=== PATIENT | female | born 1965 | race Caucasian/White ===

== ENCOUNTER 2016-11-21 13:46 | Emergency (ER) | payer BC ==
[2016-11-21 14:19] VITALS: BP 110/60
[2016-11-21] MEDS ORDERED: Sodium Chloride 0.9% 1,000 ML IV ONE ×2 (14:31→18:06)
[2016-11-21] MEDS ORDERED: Ondansetron 4 MG/2 ML SDV IVPUSH ONE (14:38)
[2016-11-21] MEDS ORDERED: Ketorolac 30 MG/ML SDV IVPUSH ONE (14:49)
[2016-11-21] MEDS ORDERED: Ketorolac 30 MG/ML SDV ONE (14:52)
[2016-11-21] MEDS ORDERED: methylPREDNISolone Sodium Succinate 125 MG/2 ML SDV IVPUSH ONE (14:53)
--- NOTE | 2016-11-21 14:59 | EDM.PDOC ---
ED HPI HEADACHE COMPLAINT - General Chief Complaint: Headache Stated Complaint: vomiting head ache Time Seen by Provider: 11/21/16 14:14 Source: Reports: Patient, Family History Limitations: Reports: Other (H/A) - History of Present Illness INITIAL COMMENTS - FREE TEXT/NARRATIVE: 51 years old w f with a h/o of migraine headache, came to the ed due to severe occipital H/A radiating to her forehead. I have seen this patient in the past. No trauma. Not the worst headache. Pt was seen by a neurologist in the past and was told she has Migraine Headache. As per , pt was taking Bactrim DS for a bladder infection. Her headache appears to be triggered by the sufa medication. 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 Onset Date: 11/21/16 Symptom Onset Time: 10:00 Timing/Duration: Reports: intermittent Location: Reports: occipital, temporal, bilateral Quality: Reports: pounding, squeezing Severity: Reports: severe, similar to past headaches Context: Reports: recent drugs/ETOH (bactrim) Associated Symptoms: Reports: hyperacusis, photophobia - Related Data Allergies/ADRs: Allergies Allergy/AdvReac Type Severity Reaction Status Date / Time No Known Allergies Allergy Verified 11/21/16 14:09 Home Meds: Home Meds Amitriptyline [Elavil] 25 mg PO BEDTIME 07/24/13 [History] Dimenhydrinate [Dramamine] 50 mg PO Q6H PRN 07/24/13 [History] Ibuprofen 600 mg PO Q6H PRN 07/24/13 [History] Citalopram [Citalopram HBr] 20 mg PO DAILY 04/10/16 [History] Acetaminophen [Tylenol] 325 mg PO ASDIRECTED PRN 04/11/16 [History] Ondansetron [Zofran Odt] 8 mg PO Q6H PRN #20 tab.rapdis 09/01/16 [Rx] Ciprofloxacin [Cipro] 500 mg PO BID #20 tab 11/21/16 [Rx] Promethazine [Phenergan] 25 mg PO Q6H PRN #20 tab 11/21/16 [Rx] Past Medical History - Past Health History Medical/Surgical History: Denies Medical/Surgical History HEENT History: Reports: Allergic rhinitis, Impaired vision, Other (see below) Other HEENT History: ALLERGIC RHINITIS; MYOPIA; PRESBYOPIA; ASTIGMATISM Cardiovascular History: Reports: None, Other (see below) Other Cardiovascular History: PALPITATIONS Respiratory History: Reports: None Gastrointestinal History: Reports: GERD Genitourinary History: Reports: Urinary incontinence 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: Musculoskeletal History: Reports: None Neurological History: Reports: Headaches, chronic, Migraines Psychiatric History: Reports: Depression Endocrine/Metabolic History: Reports: None Hematologic History: Reports: None Immunologic History: Reports: None Oncologic (Cancer) History: Reports: None Dermatologic History: Reports: None - Infectious Disease History Infectious Disease History: Reports: Chicken pox - Past Surgical History Head Surgeries/Procedures: Reports: None HEENT Surgical History: Reports: Tonsillectomy GI Surgical History: Reports: Colonoscopy Female Surgical History: Reports: Breast implant, section, Tubal ligation Social & Family History - Family History Family Medical History: Unobtainable - Tobacco Use Smoking Status *Q: Never Smoker Second Hand Smoke Exposure: No - Caffeine Use Caffeine Use: Reports: Soda - Alcohol Use Days Per Week of Alcohol Use: 2 Number of Drinks Per Day: 0 Total Drinks Per Week: 0 - Recreational Drug Use Recreational Drug Use: No - Living Situation & Occupation 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: , 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 GENERAL - Review of Systems Review Of Systems: See Below Constitutional: Reports: decreased appetite HEENT: Reports: Other (H/A) Respiratory: Reports: No Symptoms Cardiovascular: Reports: No symptoms Endocrine: Reports: no symptoms GI/Abdominal: Reports: Nausea, Vomiting : Reports: no symptoms Musculoskeletal: Reports: no symptoms Skin: Reports: no symptoms Neurological: Reports: No Symptoms Psychiatric: Reports: No symptoms Hematologic/Lymphatic: Reports: no symptoms Immunologic: Reports: no symptoms - Physical Exam Exam: See Below Exam Limited By: Other (H/A) General Appearance: alert, WD/WN, moderate distress, thin Eye Exam: bilateral eye: normal inspection Ears: normal external exam Nose: normal inspection Throat/Mouth: Normal inspection, Normal lips, Normal teeth Head Exam: atraumatic, normocephalic Neck: normal inspection, supple, non-tender, full range of motion Respiratory/Chest: no respiratory distress, lungs clear, normal breath sounds Cardiovascular: normal peripheral pulses, regular rate, rhythm, no edema GI/Abdominal: normal bowel sounds, soft, non tender (Female) Exam: Deferred Rectal (Female) Exam: Deferred Neuro Exam (Abbreviated): alert, oriented, CN II-XII intact, normal cognition, normal gait Back Exam: normal inspection, full range of motion Extremities: normal inspection, normal range of motion, non-tender, no pedal edema Psychiatric: normal affect, normal mood Skin Exam: Warm, Dry, Intact Course - Vital Signs Text/Narrative:: 51 years old w f with a h/o of migraine headache, came to the ed due to severe occipital H/A radiating to her forehead. I have seen this patient in the past. No trauma. Not the worst headache. Pt was seen by a neurologist in the past and was told she has Migraine Headache. As per , pt was taking Bactrim DS for a bladder infection. Her headache appears to be triggered by the sufa medication. 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 Plan: D/C with instructions Last Recorded V/S: Last Vital Signs Temp 38.2 C H 11/21/16 14:14 Pulse 109 H 11/21/16 14:14 Resp 16 11/21/16 14:14 BP 110/60 11/21/16 14:14 Pulse Ox 97 11/21/16 14:14 - Orders/Labs/Meds Labs: Laboratory Tests 11/21/16 11/21/16 Range/Units 14:45 14:45 WBC 8.6 (4.5-12.0) X10-3/uL RBC 4.13 (3.23-5.20) x10(6)uL Hgb 12.8 (11.5-15.5) g/dL Hct 37.8 (30.0-51.3) % MCV 91.5 (80-96) fL MCH 30.9 (27.7-33.6) pg MCHC 33.7 (32.2-35.4) g/dL RDW 12.2 (11.5-15.5) % Plt Count 194 (125-369) X10(3)uL MPV 7.7 (7.4-10.4) fL Add Manual Diff Yes Neutrophils % (Manual) 90 H (46-82) % Lymphocytes % (Manual) 4 L (13-37) % Monocytes % (Manual) 6 (4-12) % Sodium 139 (135-145) mmol/L Potassium 3.3 L (3.5-5.3) mmol/L Chloride 106 (100-110) mmol/L Carbon Dioxide 25 (23-29) mmol/L BUN 14 (5-20) mg/dL Creatinine 0.6 (0.6-1.3) mg/dL Est Cr Clr Drug Dosing TNP Estimated GFR (MDRD) > 60 (>60) BUN/Creatinine Ratio 23.3 H (9-20) Glucose 130 H (80-116) mg/dL Calcium 8.4 L (8.6-10.2) mg/dL Meds: Medications Discontinued Medications Generic Name Dose Route Start Last Admin Trade Name Freq PRN Reason Stop Dose Admin Dihydroergotamine Mesylate 1 mg 11/21/16 16:04 11/21/16 16:10 Dhe 45 IVPUSH 11/21/16 16:05 1 mg ONETIME ONE Administration Dihydroergotamine Mesylate Confirm 11/21/16 16:06 11/21/16 16:10 Dhe 45 Administered 11/21/16 16:07 Not Given Dose 1 mg .ROUTE .STK-MED ONE Dihydroergotamine Mesylate 1 mg 11/21/16 18:05 11/21/16 18:41 Dhe 45 IVPUSH 11/21/16 18:06 1 mg ONETIME ONE Administration Sodium Chloride 1,000 mls @ 999 mls/hr 11/21/16 14:31 11/21/16 14:48 Normal Saline IV 11/21/16 15:31 999 mls/hr .BOLUS ONE Administration Sodium Chloride 1,000 mls @ 999 mls/hr 11/21/16 18:06 11/21/16 18:39 Normal Saline IV 11/21/16 19:06 999 mls/hr .BOLUS ONE Administration Promethazine HCl 12.5 mg/ 50.5 mls @ 200 mls/hr 11/21/16 18:45 11/21/16 18:57 Sodium Chloride IV 11/21/16 19:00 200 mls/hr ONETIME STA Administration Ketorolac Tromethamine 30 mg 11/21/16 14:49 11/21/16 14:56 Toradol IVPUSH 11/21/16 14:50 30 mg ONETIME ONE Administration Ketorolac Tromethamine Confirm 11/21/16 14:52 11/21/16 14:58 Toradol Administered 11/21/16 14:53 Not Given Dose 30 mg .ROUTE .STK-MED ONE Methylprednisolone Sodium Succinate 125 mg 11/21/16 14:53 11/21/16 15:02 Solu-Medrol IVPUSH 11/21/16 14:54 125 mg ONETIME ONE Administration Metoclopramide HCl 10 mg 11/21/16 16:03 11/21/16 16:04 Reglan IVPUSH 11/21/16 16:04 10 mg ONETIME ONE Administration Metoclopramide HCl Confirm 11/21/16 16:04 11/21/16 16:04 Reglan Administered 11/21/16 16:05 Not Given Dose 10 mg .ROUTE .STK-MED ONE Ondansetron HCl 8 mg 11/21/16 14:38 11/21/16 14:55 Zofran IVPUSH 11/21/16 14:39 8 mg ONETIME ONE Administration Potassium Chloride 40 meq 11/21/16 18:06 11/21/16 18:40 Klor-Con M20 PO 11/21/16 18:07 40 meq ONETIME ONE Administration Departure - Departure Time of Disposition: 20:20 Disposition: Home, Self-Care 01 Condition: good Clinical Impression: Headache Qualifiers: Headache type: unspecified Headache chronicity pattern: episodic headache Intractability: not intractable Qualified Code(s): R51 - Headache Prescriptions: Ciprofloxacin [Cipro] 500 mg PO BID #20 tab Promethazine [Phenergan] 25 mg PO Q6H PRN #20 tab PRN Reason: Nausea Referrals: Elsa Camacho PA [Primary Care Provider] - Forms: ED Department Discharge Additional Instructions: Please take the meds as recommended, please follow up with your PMD, come back to the ed if your symptom get acutely worse.
[2016-11-21] MEDS ORDERED: Metoclopramide 10 MG/2 ML SDV IVPUSH ONE (16:03)
[2016-11-21] MEDS ORDERED: Metoclopramide 10 MG/2 ML SDV ONE (16:04)
[2016-11-21] MEDS ORDERED: Dihydroergotamine 1 MG/ML SDV IVPUSH ONE ×2 (16:04→18:05)
[2016-11-21] MEDS ORDERED: Dihydroergotamine 1 MG/ML SDV ONE (16:06)
[2016-11-21] MEDS ORDERED: Potassium Chloride 20 MEQ Tab.ER PO ONE (18:06)
[2016-11-21] MEDS ORDERED: Promethazine 12.5 MG in Sodium Chloride 0.9% 50 ML IV STA (18:45)
== END 2016-11-21 21:00 | disposition home or self-care (01) ==
LOC: FB.ED 13:46
DX: G43.909 Migraine, unspecified, not intractable, without status migrainosus (principal); K21.9 Gastro-esophageal reflux disease without esophagitis; F32.9 Major depressive disorder, single episode, unspecified; Z79.899 Other long term (current) drug therapy; Z98.890 Other specified postprocedural states; Z98.51 Tubal ligation status
CPT/HCPCS: 36415; 80048; 85025; 96361; 96365; 96375; 99283; A9270; J1110; J1885; J2405; J2550; J2765; J2930; J7040; J7050

== ENCOUNTER 2016-11-22 05:48 | Inpatient (IN) | payer BC ==
[2016-11-22] MEDS ORDERED: Potassium Chloride 10 MEQ in Premix Bag 1 BAG IV ONE (06:06)
[2016-11-22] MEDS ORDERED: SUMAtriptan 6 MG/0.5 ML SDV SUBCUT ONE (06:08)
[2016-11-22] MEDS ORDERED: Promethazine 12.5 MG in Sodium Chloride 0.9% 50 ML IV ONE (06:08)
[2016-11-22] MEDS ORDERED: Sodium Chloride 0.9% 1,000 ML IV SCH (06:15)
[2016-11-22] MEDS ORDERED: Sodium Chloride 0.9% 10 ML Syringe FLUSH PRN (06:16)
[2016-11-22] MEDS ORDERED: Pantoprazole 40 MG Vial IVPUSH ONE (06:16)
--- NOTE | 2016-11-22 06:16 | EDM.PDOC ---
ED HPI HEADACHE COMPLAINT - General Chief Complaint: Headache Stated Complaint: HEADACHES Time Seen by Provider: 11/22/16 05:58 Source: Reports: Patient, Family History Limitations: Reports: Other (H/A) - History of Present Illness INITIAL COMMENTS - FREE TEXT/NARRATIVE: 51 years old w f came to the ed with severe gen headache, same as in the past, when an CT and MRI were performed, all negative. She was here in [facility] ed last night for same and d/c'd home after Zofran, Reglan, Phenergen, NS, Toradol and Solumedrol were given, her potassium was 3.3. She was given potassium PO which she most likely vomited up. She received DHE 45 1mg X 2 as well which gave her relive. she was d/c'd home then. As per , Bactrim DS, which she took for an UTI may have triggered the H/A. Pt is ambulating fine, denied other medical issues. Symptom Onset Date: 11/21/16 Symptom Onset Time: 10:00 Timing/Duration: Reports: hour(s): Location: Reports: occipital, temporal, bilateral Quality: Reports: pounding, squeezing Severity: Reports: moderate, similar to past headaches - Related Data Allergies/ADRs: Allergies Allergy/AdvReac Type Severity Reaction Status Date / Time No Known Allergies Allergy Verified 11/22/16 05:54 Home Meds: Home Meds Amitriptyline [Elavil] 25 mg PO BEDTIME 07/24/13 [History] Dimenhydrinate [Dramamine] 50 mg PO Q6H PRN 07/24/13 [History] Ibuprofen 600 mg PO Q6H PRN 07/24/13 [History] Citalopram [Citalopram HBr] 20 mg PO DAILY 04/10/16 [History] Acetaminophen [Tylenol] 325 mg PO ASDIRECTED PRN 04/11/16 [History] Ondansetron [Zofran Odt] 8 mg PO Q6H PRN #20 tab.rapdis 09/01/16 [Rx] Ciprofloxacin [Cipro] 500 mg PO BID #20 tab 11/21/16 [Rx] Promethazine [Phenergan] 25 mg PO Q6H PRN #20 tab 11/21/16 [Rx] Nortriptyline 10 mg PO BEDTIME 11/22/16 [History] SUMAtriptan Succinate [Imitrex] 100 mg PO BID PRN 11/22/16 [History] Past Medical History - Past Health History Medical/Surgical History: Denies Medical/Surgical History HEENT History: Reports: Allergic rhinitis, Impaired vision, Other (see below) Other HEENT History: ALLERGIC RHINITIS; MYOPIA; PRESBYOPIA; ASTIGMATISM Cardiovascular History: Reports: None, Other (see below) Other Cardiovascular History: PALPITATIONS Respiratory History: Reports: None Gastrointestinal History: Reports: GERD Genitourinary History: Reports: Urinary incontinence 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: Musculoskeletal History: Reports: None Neurological History: Reports: Headaches, chronic, Migraines Psychiatric History: Reports: Depression Endocrine/Metabolic History: Reports: None Hematologic History: Reports: None Immunologic History: Reports: None Oncologic (Cancer) History: Reports: None Dermatologic History: Reports: None - Infectious Disease History Infectious Disease History: Reports: Chicken pox - Past Surgical History Head Surgeries/Procedures: Reports: None HEENT Surgical History: Reports: Tonsillectomy GI Surgical History: Reports: Colonoscopy Female Surgical History: Reports: Breast implant, section, Tubal ligation Social & Family History - Family History Family Medical History: Unobtainable - Tobacco Use Smoking Status *Q: Never Smoker Second Hand Smoke Exposure: No - Caffeine Use Caffeine Use: Reports: Soda - Alcohol Use Days Per Week of Alcohol Use: 2 Number of Drinks Per Day: 0 Total Drinks Per Week: 0 - Recreational Drug Use Recreational Drug Use: No - Living Situation & Occupation 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: , other ([employer]) ED ROS GENERAL - Review of Systems Review Of Systems: See Below Constitutional: Reports: weakness HEENT: Reports: No symptoms Respiratory: Reports: No Symptoms Cardiovascular: Reports: No symptoms Endocrine: Reports: no symptoms GI/Abdominal: Reports: Nausea, Vomiting : Reports: no symptoms Musculoskeletal: Reports: no symptoms Skin: Reports: no symptoms Neurological: Reports: Headache Psychiatric: Reports: No symptoms Hematologic/Lymphatic: Reports: no symptoms Immunologic: Reports: no symptoms - Physical Exam Exam: See Below Exam Limited By: Other (N/V) General Appearance: alert, WD/WN, moderate distress, thin Eye Exam: bilateral eye: normal inspection Ears: normal external exam Nose: normal inspection Throat/Mouth: Other (dry mucosal membrane) Head Exam: atraumatic, normocephalic Neck: normal inspection, supple, non-tender, full range of motion Respiratory/Chest: no respiratory distress, lungs clear, normal breath sounds Cardiovascular: normal peripheral pulses, regular rate, rhythm, no edema GI/Abdominal: normal bowel sounds, soft, tender (epigastric, minor) (Female) Exam: Deferred Rectal (Female) Exam: Deferred Neuro Exam (Abbreviated): alert, oriented, CN II-XII intact, normal cognition, normal gait, no motor/sensory deficits Back Exam: normal inspection, full range of motion Extremities: normal inspection, normal range of motion, non-tender Psychiatric: normal affect, normal mood Skin Exam: Warm, Dry, Intact, Normal color, No rash Course - Vital Signs Text/Narrative:: 51 years old w f came to the ed with severe gen headache, same as in the past, when an CT and MRI were performed, all negative. She was here in [facility] ed last night for same and d/c'd home after Zofran, Reglan, Phenergen, NS, Toradol and Solumedrol were given, her potassium was 3.3. She was given potassium PO which she most likely vomited up. She received DHE 45 1mg X 2 as well which gave her relive. she was d/c'd home then. As per , Bactrim DS, which she took for an UTI may have triggered the H/A. Pt is ambulating fine, denied other medical issues. PE: N/V intermittently, Dry mucosal membrane Labs: WBC was 15.2 most likely from vomiting, no f/c. Neuro exam was nl Imaging: Not indicated. Impression: Migraine headache with photophobia, gastritis, Hypokalemia Tx: NS. Phenegen, potassium i.v. Imitrex, Dilaudid, Reexam: Improved, pt still not able to keep water down Plan: Admit Last Recorded V/S: Last Vital Signs Temp 36.7 C 11/22/16 08:53 Pulse 84 11/22/16 10:04 Resp 18 11/22/16 10:04 BP 110/84 11/22/16 10:04 Pulse Ox 100 11/22/16 10:04 - Orders/Labs/Meds Orders: Medication Orders Acetaminophen (Tylenol) 650 mg PO Q4H PRN PRN Reason: analgesia/fever Promethazine HCl 12.5 mg/ (Sodium Chloride) 50.5 mls @ 200 mls/hr IV Q6H PRN PRN Reason: Nausea/Vomiting Potassium Chloride/Sodium Chloride (Normal Saline With 20 Meq Kcl) 1,000 mls @ 150 mls/hr IV ASDIRECTED JOE Ciprofloxacin/Dextrose 400 mg/ (Premix) 200 mls @ 200 mls/hr IV Q12HR JOE Ketorolac Tromethamine (Toradol) 30 mg IVPUSH Q6H PRN PRN Reason: Pain Stop: 11/27/16 12:51 Sodium Chloride (Saline Flush) 10 ml FLUSH ASDIRECTED PRN PRN Reason: Keep Vein Open Meds: Medications Generic Name Dose Route Start Last Admin Trade Name Freq PRN Reason Stop Dose Admin Acetaminophen 650 mg 11/22/16 12:45 Tylenol PO Q4H PRN analgesia/fever Promethazine HCl 12.5 mg/ 50.5 mls @ 200 mls/hr 11/22/16 06:16 Sodium Chloride IV Q6H PRN Nausea/Vomiting Potassium Chloride/Sodium Chloride 1,000 mls @ 150 mls/hr 11/22/16 13:00 Normal Saline With 20 Meq Kcl IV ASDIRECTED JOE Ciprofloxacin/Dextrose 400 mg/ 200 mls @ 200 mls/hr 11/22/16 13:00 Premix IV Q12HR JOE Ketorolac Tromethamine 30 mg 11/22/16 12:51 Toradol IVPUSH 11/27/16 12:51 Q6H PRN Pain Sodium Chloride 10 ml 11/22/16 06:16 Saline Flush FLUSH ASDIRECTED PRN Keep Vein Open Discontinued Medications Generic Name Dose Route Start Last Admin Trade Name Freq PRN Reason Stop Dose Admin Hydromorphone HCl 1 mg 11/22/16 07:33 11/22/16 10:16 Dilaudid IM 11/22/16 07:34 1 mg ONETIME ONE Administration Hydromorphone HCl Confirm 11/22/16 10:11 11/22/16 10:15 Dilaudid Administered 11/22/16 10:12 Not Given Dose 2 mg .ROUTE .STK-MED ONE Sodium Chloride 1,000 mls @ 125 mls/hr 11/22/16 06:15 11/22/16 06:24 Normal Saline IV 125 mls/hr ASDIRECTED JOE Administration Potassium Chloride 10 meq/ 100 mls @ 100 mls/hr 11/22/16 06:06 11/22/16 07:49 Premix IV 11/22/16 07:05 100 mls/hr ONETIME ONE Administration Promethazine HCl 12.5 mg/ 50.5 mls @ 200 mls/hr 11/22/16 06:08 11/22/16 06:23 Sodium Chloride IV 11/22/16 06:23 200 mls/hr ONETIME ONE Administration Pantoprazole Sodium 40 mg 11/22/16 06:16 Protonix Iv IVPUSH 11/22/16 06:17 ONETIME ONE Sumatriptan Succinate 6 mg 11/22/16 06:08 11/22/16 06:22 Imitrex SUBCUT 11/22/16 06:09 6 mg ONETIME ONE Administration Departure - Departure Time of Disposition: 07:00 Disposition: Refer to Observation Condition: fair Clinical Impression: Headache
[2016-11-22] MEDS ORDERED: HYDROmorphone 2 MG/ML SDV IM ONE (07:33)
[2016-11-22] MEDS ORDERED: HYDROmorphone 2 MG/ML SDV ONE (10:11)
[2016-11-22] MEDS ORDERED: NS + KCl 20mEq/L 1,000 ML ONE (13:04)
[2016-11-22] MEDS: NS + KCl 20mEq/L 1,000 ML IV SCH ×2 (13:25→21:54)
[2016-11-22] MEDS: Ciprofloxacin in D5W 400 MG in Premix Bag 1 BAG IV SCH ×2 (13:26)
[2016-11-22] MEDS: Ketorolac 30 MG/ML SDV IVPUSH PRN ×2 (14:03→20:02)
[2016-11-22] MEDS: Acetaminophen 325 MG Tab PO PRN ×2 (14:03→19:05)
[2016-11-22] MEDS ORDERED: Sodium Chloride 0.9% 500 ML IV ONE (15:23)
[2016-11-22] MEDS ORDERED: cefTRIAXone 1 GM Vial ONE (15:30)
[2016-11-22] MEDS ORDERED: Sodium Chloride 0.9% 500 ML IV SCH (16:00)
[2016-11-22] MEDS: cefTRIAXone 1 GM in Sodium Chloride 0.9% 50 ML IV SCH (16:02)
--- NOTE | 2016-11-22 16:13 | HP ---
ADMISSION DATE: 11/22/2016 CHIEF COMPLAINT: Severe posterior headache with fever, chills, mild lower abdominal discomfort. HISTORY OF PRESENT ILLNESS: This patient is a 51-year-old female with a previous history of migraine headaches, anxiety and depression, along with some stress incontinence, who is seen today after being seen in the emergency room twice in the last 24 hours with the above chief complaint. Apparently, the patient was seen yesterday in the clinic with increased urinary frequency and some urgency. Urinalysis revealed pyuria and culture was done. She was started on Bactrim DS one b.i.d. She said, shortly after taking that, she developed a significant posterior headache and presented to the emergency room. She was treated with IV hydration, had been given Zofran and Phenergan. Was discharged home and seemed to be doing better. Last night, in the middle of night, her headache returned and became quite severe posterior. She was unable to take any of her antibiotics last night because of nausea. When she presented to the emergency room early this morning, she was felt to be somewhat dehydrated. Initially, when she was seen on Thursday, her white count was normal with a little bit of left shift. Today, however, her white count is elevated and, although, she said she has been afebrile at home, she admits to generalized myalgias severe posterior headache without blurred vision or double vision. She has had no history of head trauma and denies any neck stiffness, although, she says the headache radiates down into her neck. She has had no increased confusion. She has significant photophobia and associated nausea. She has been in the emergency room, where she had been given IV fluids and Zofran along with promethazine and Dilaudid. Although, her headache has subsided, she is feeling worse, has been vomiting and unable to keep anything down. She is therefore admitted for more aggressive therapy. There has been no chest pain and no cough. She admits to a minimal sore throat, but she thinks that is from the vomiting. She denies any ear pain, has had no blurred vision or double vision, numbness or tingling of any extremity. Denies any skin rashes, joint pain, swelling or tenderness, or other complaints. MEDICATIONS: She is taking no medicines lately. She normally is on Prilosec 20 mg daily and citalopram 20 mg daily. She has used diclofenac 75 mg b.i.d. periodically for headache and was recently started on the Bactrim DS. ALLERGIES: None are known. Although, in the past, she has had nausea with Septra. SOCIAL HISTORY: She does not smoke and uses alcohol rarely. PAST MEDICAL HISTORY: Pertinent in that she is 2, para 3. PAST SURGICAL HISTORY: She had one vaginal delivery and one section. Other surgeries include an augmentation mammoplasty along with tubal ligation. FAMILY HISTORY: The patient's mother in her early 30s of some form of abdominal cancer, she is not sure what. Dad living in his 70s, apparently, recently he had a stroke. She has 5 siblings. One brother apparently recently started to have seizures in his 40s and one brother apparently has a history of heart disease. REVIEW OF SYSTEMS: Full review of systems was discussed, other than that mentioned in the HPI, was unremarkable. PHYSICAL EXAMINATION: VITAL SIGNS: At this time showed her temperature to be 101.6, blood pressure was 80/40, pulse was 81 and regular, respirations were 18, O2 saturation ranges between 95% and 100% on room air. GENERAL: A well- developed, flushed-appearing female who appears uncomfortable, but in no acute distress. HEENT: Head, normocephalic and atraumatic. Pupils are round and reacted well to light and accommodation. Extraocular movements were intact. Sclerae and conjunctivae were clear. TMs are both clear. Nasal passages were open without discharge. Pharynx and palate were unremarkable, except for a little bit of mucoid postnasal drainage. No significant erythema or exudate was noted. NECK: There was no palpable anterior or posterior cervical adenopathy. She says it is a little bit sore in the anterior cervical region, but again, she thinks it is from the vomiting. Trachea was midline and thyroid was not enlarged. MUSCULOSKELETAL: The back was straight. No deformities were noted. No CVA or spinous process tenderness was noted. CHEST: Clear to auscultation and percussion. CARDIOVASCULAR: Revealed a normal S1 and S2 without murmur, rub, or gallop. ABDOMEN: Soft with a well-healed Pfannenstiel incisional scar. There was a little bit of suprapubic and bilateral lower quadrant tenderness without rebound, rigidity, organomegaly or masses. Tapping on her heels caused no increase in abdominal pain, although, it did bother her headache. EXTREMITIES: Without clubbing. No edema. Straight leg raising was negative to 90 degrees and Kernig sign was negative. She has excellent peripheral pulses distally. NEUROLOGIC: She is alert and oriented x3. She has significant photophobia from her headache and describes nausea. She moves all extremities to command. Cranial nerves were intact. No other abnormalities were noted. LABORATORY DATA: Lab done today revealed a hemoglobin of 13.2, hematocrit of 39.4, white count of 15,200. She had 86 segs, 8 bands, 3 lymphocytes, and 3 monos. Sodium 140, potassium at 3.9, creatinine was 0.8, BUN of 16. Random glucose was 123. Urinalysis today showed a specific gravity of 1.010 and was completely unremarkable. Urine culture done yesterday showed greater than 100,000 colonies of E. coli, sensitivities are not back yet. IMPRESSION: 1. Migraine headache with resultant nausea and vomiting, but I think it is aggravated by urosepsis and possible septicemia, especially with the fever. 2. Previous history of anxiety and depression. PLAN: Blood cultures will be obtained. Urine cultures are still pending. I am going to start her on IV Cipro 400 mg q.12 hours and appropriate IV hydration. Continue to treat her headache with IV Ketoralac along with promethazine and watch closely. Tylenol can be used for the fever. If there are new problems or other difficulties, we will deal with them then. /[id number] /SARANYAL
[2016-11-22] MEDS: Promethazine 12.5 MG in Sodium Chloride 0.9% 50 ML IV PRN (19:04)
[2016-11-23] MEDS: Ciprofloxacin in D5W 400 MG in Premix Bag 1 BAG IV SCH ×4 (01:25→12:00)
[2016-11-23] MEDS: Ketorolac 30 MG/ML SDV IVPUSH PRN ×3 (02:26→13:56)
[2016-11-23] MEDS: NS + KCl 20mEq/L 1,000 ML IV SCH ×3 (05:40→21:29)
[2016-11-23] MEDS: Promethazine 12.5 MG in Sodium Chloride 0.9% 50 ML IV PRN (06:59)
[2016-11-23] MEDS ORDERED: Pantoprazole 40 MG in Sodium Chloride 0.9% 100 ML IV SCH (10:15)
[2016-11-23] MEDS: Pantoprazole 40 MG Vial IVPUSH SCH (11:18)
[2016-11-23] MEDS: Loperamide 2 MG Cap PO PRN ×3 (11:18→19:34)
--- NOTE | 2016-11-23 11:48 | PN ---
DATE SEEN: 11/23/2016 SUBJECTIVE: This 51-year-old female presents today for followup of her fever with cystitis and headache. She spiked a temperature to 101 on admission, and cultures were obtained. Still awaiting the results of her urine culture sensitivity, but it did grow out greater than 100,000 colonies of E. coli. Blood cultures thus far show no growth. Headache was treated with Toradol, and she was given a gram of Rocephin and 400 mg of Cipro IV yesterday. Her fever has come down. She is well hydrated, voiding frequently. She now complains of loose stools and intermittent nausea with periodic vomiting. There has been no hemoptysis, hematemesis, or history of acholic stools. No history of melena or hematochezia. She continues to complain of a posterior headache. Toradol does help some. It is the nausea that bothers her mostly. She denies any actual abdominal pain. She has had no previous history of ulcer disease. Medications were reviewed. Allergies were reviewed, all of which were accurate. OBJECTIVE: VITAL SIGNS: Her temperature was 99.8 early this morning, it is now 98.9; pulse is 75 and regular; respirations are 18 and unlabored; blood pressure 115/63. GENERAL: She appears to be more comfortable today than yesterday. A well-developed, well-nourished female, who is alert and oriented, complains of some headache, but still has some photophobia. HEENT: Otherwise unremarkable. NECK: Full range of motion, but paraspinal muscle spasm and tenderness was noted, and pressure over this area seemed to aggravate her headaches some. CHEST: Clear. BACK: Without spinous process tenderness. She may have just a little bit of CVA tenderness. CARDIOVASCULAR: Reveals a normal S1 and S2 without murmur, rub, or gallop. ABDOMEN: Soft. She has maybe a little tenderness in the lower quadrants in the suprapubic area, but considerably less than yesterday, and there is no rebound or rigidity. Bowel sounds are normal. EXTREMITIES: Without clubbing. No edema, ulcerations, or areas of breakdown. Kernig's sign is negative with no evidence of nuchal rigidity. LABORATORY DATA: Lab today revealed a hemoglobin of 11.5, hematocrit of 34.3. Her white count is now 7900 with a normal differential. Sodium 140, potassium of 4.1, chloride is up to 117, CO2 is 21. Her creatinine is 0.5, BUN of 10. Urine culture as noted above. I reviewed the results of the previous CT scan and MRI of her head done in August, all of which was unremarkable. IMPRESSION: 1. Recent cystitis with fever. Rule out urosepsis, awaiting the results of her sensitivity, but the patient's white count has improved and her fever seems to be improving. 2. Persistent posterior headache. 3. Nausea and vomiting along with diarrhea. This may be a gastroenteritis. I think it is a bit early to have this from her antibiotic therapy, but we will watch closely. PLAN: At this point, we will continue the Cipro and ceftriaxone until we have the results of her urine culture. Because of her persistent nausea, I am going to increase her Phenergan to 25 mg IV q.6 hours p.r.n. We will continue Protonix IV, as she had a previous history of gastroesophageal reflux and dyspepsia and was taking omeprazole as an outpatient. Imodium will be used for the diarrhea, and we will continue to monitor and continue the Ketoralac IV for the headache, and we will follow from there. /[id number] /REUBEN
[2016-11-23] MEDS: Promethazine 25 MG in Sodium Chloride 0.9% 50 ML IV PRN (13:00)
[2016-11-23] MEDS ORDERED: hydrOXYzine HCl 50 MG/ML SDV IM ONE (15:17)
[2016-11-23] MEDS ORDERED: cefTRIAXone 1 GM in Sodium Chloride 0.9% 50 ML IV SCH ×2 (16:00→17:00)
[2016-11-23] MEDS ORDERED: cefTRIAXone 1 GM Vial ONE (16:08)
[2016-11-23] MEDS: cefTRIAXone 1 GM in Sodium Chloride 0.9% 50 ML IV SCH (17:24)
[2016-11-23] MEDS: Citalopram 20 MG Tab PO SCH (18:03)
[2016-11-23] MEDS: Acetaminophen 325 MG Tab PO PRN (19:36)
[2016-11-23] MEDS ORDERED: Nortriptyline 10 MG Cap PO SCH (21:00)
[2016-11-24] MEDS: Acetaminophen 325 MG Tab PO PRN ×4 (03:45→20:35)
[2016-11-24] MEDS: NS + KCl 20mEq/L 1,000 ML IV SCH ×3 (04:22→23:55)
[2016-11-24] MEDS: Promethazine 25 MG in Sodium Chloride 0.9% 50 ML IV PRN (08:12)
[2016-11-24] MEDS: Pantoprazole 40 MG Vial IVPUSH SCH (08:59)
--- NOTE | 2016-11-24 10:48 | US ---
INDICATION: Recurrent UTIs. RENAL ULTRASOUND COMPLETE: Multiple ultrasonic images revealed the kidneys to measure 11.3 x 6.5 x 6.5 cm on the right, and 11.7 x 5 x 5.3 cm on the left. The kidneys overall appear to be normal in size and shape. However, there is evidence of hydronephrosis. This is bilateral, raising question of a bladder outlet obstruction or possibly a normal variant. The urinary bladder measured 13.3 x 9.78 cm longitudinally with a transverse measurement of 119 mm. The urinary bladder wall appeared slightly thickened, raising question of cystitis. Along the anterior cranial aspect of the mid pole of the right kidney, there is a small fluid collection subhepatic in location - Morison's pouch - which may be related to an inflammatory process, such as pyelonephritis, but should be correlated clinically, as other etiology cannot be excluded. A definite abscess formation was not seen. No mass lesions or definite calculi were seen in the kidneys. Blood flow to the kidneys appeared normal. Bilateral ureteral jets are noted which does not strongly suggest ureteral obstructive process. IMPRESSION: 1. Appearance of dilatation of the collecting systems, both kidneys, raising question of hydronephrosis - obstructive uropathy - correlate clinically. Additional examination such as CT without and with IV contrast and with delayed CT urogram may be helpful depending upon clinical correlation. 2. Fluid collection Morison's pouch, etiology indeterminate but could be related to pyelonephritis. Other etiologies cannot be excluded. 3. Somewhat prominent size of the urinary bladder suggested - correlate clinically - with thickening of the urinary bladder wall suggested, possibly on the basis of cystitis - correlate clinically. MTDD
[2016-11-24] MEDS ORDERED: Nortriptyline 10 MG Cap PO SCH (12:38)
--- NOTE | 2016-11-24 13:30 | PN ---
DATE SEEN: 11/24/2016 SUBJECTIVE: This 51-year-old female is seen today for followup of her migraine headache, persistent nausea and vomiting and she has had recent cystitis secondary to Escherichia coli. Her temperature has been down. Her headache has improved some. She continues to be nauseated intermittently with the loose stools that have stopped. She has had some lower abdominal discomfort, but again no fever. Appetite is still quite poor. Her intake is poor. She complains of nausea. The patient is sleeping a fair amount throughout the day with the use of the promethazine. She has not had use of the Ketoralac much. She has been just using Tylenol right now for headache and that seems to give her about as much relief as anything else. Her other medications were reviewed. Allergies reviewed all of which were accurate. OBJECTIVE: GENERAL: She appears to be much more comfortable this morning. VITAL SIGNS: Temperature was 98.2, blood pressure 100/62, pulse is 61 and regular, respirations were 16, O2 saturations 94%. HEENT: Unremarkable. Range of motion of her neck is quite normal with minimal paraspinal muscle spasm and tenderness. No spinous process tenderness. No nuchal rigidity. CHEST: Clear. CARDIOVASCULAR: Unremarkable. BACK: Without CVA or spinal tenderness. ABDOMEN: Soft with minimal lower quadrant tenderness without rebound or rigidity. Bowel sounds are normal. EXTREMITY: Also unremarkable. Straight leg raising was negative to 90 degrees. NEUROLOGIC: No neurologic deficits were identified. Upon awakening, she answered questions appropriately. She was alert and oriented x3. IMPRESSION: 1. Recent fever, chills, some pyuria with urinary tract infection. Blood cultures thus far proved to be negative. Urine culture was positive for Escherichia coli. 2. Migraine headache with associated nausea and vomiting. 3. Diarrhea, presumably secondary gastroenteritis as this has since improved. PLAN: Ultrasound will be obtained today because of the recurrent urinary tract infections and the persistent pelvic pain. We will proceed from there. I am going to decrease her IV rate. Switch her off the promethazine and just use Vistaril orally for nausea. Increase her nortriptyline to 20 mg daily in hopes of improving her headaches and depending on how she does, switch her off the ceftriaxone for urinary tract infection. Get her started on home medications, but will wait and see. We will follow from there. /[id number] /REUBEN
[2016-11-24] MEDS ORDERED: Iopamidol 755 Mg/ML 100 ML Bottle IV ONE (14:56)
[2016-11-24] MEDS ORDERED: cefTRIAXone 1 GM in Sodium Chloride 0.9% 50 ML IV SCH (17:00)
[2016-11-24] MEDS: Omeprazole 20 MG Cap.CR PO SCH (17:42)
[2016-11-24] MEDS: Citalopram 20 MG Tab PO SCH (19:17)
[2016-11-25] MEDS: Omeprazole 20 MG Cap.CR PO SCH (06:47)
[2016-11-25] MEDS: Acetaminophen 325 MG Tab PO PRN (07:57)
--- NOTE | 2016-11-25 08:48 | CT ---
INDICATION: Lower abdominal pain with hydronephrosis on ultrasound. CT ABDOMEN AND PELVIS WITH CONTRAST COMPLETE: Spiral 2.5-mm axial sections were obtained through the abdomen and pelvis initially without contrast and then with 94 mL Isovue-370 at 1.3 mL per second through the abdomen, and then after an additional delay through the abdomen and pelvis. The latter study is for CT urogram. Sagittal and coronal reconstructions were obtained for all three phases. Oral contrast was also utilized. Total Exam DLP = 1870.34 mGy-cm. The lower lung betancourt and pleural spaces visualized showed some fibrotic changes at the lung bases posteriorly, right greater than left. The appendix extends from the cecum in the pelvis cranially to lie in the right upper quadrant posterolateral to the lower pole of the right lobe of the liver. Although the appendix was normal in appearance and size, there is some fat stranding adjacent to a portion of it in the paracolic gutter, raising question of a minimal or limited appendicitis in that area. No renal calculi were identified. The pyelocaliceal systems are somewhat prominent. The course and caliber of the ureters appears to be normal. A moderately large amount of free fluid is noted in the posterior cul-de-sac. Urinary bladder and ureteral jets noted to be normal, as visualized - right ureteral jet best visualized. Multiple phleboliths are noted in the pelvis. No evidence of bowel obstruction was identified. No hernias were identified. No gallstones were demonstrated. The liver, spleen, pancreas, and adrenal glands appeared normal. No definite renal abnormality was seen except for a tiny cyst anterior cortex, partially exophytic, right kidney mid pole. IMPRESSION: 1. A large amount of free fluid in the posterior cul-de-sac and pelvis in general could be on the basis of a large physiologic cyst rupture, although other etiology such as PID cannot be excluded - correlate clinically. 2. Relatively normal appearing urinary bladder with no evidence of obstructive uropathy - normal caliber ureters. 3. Fat stranding about the portion of the appendix adjacent to the cecum. Question the possibility of a localized appendicitis. However, the appendix is not grossly abnormal itself and findings may be on the basis of previous or resolved appendicitis. CT PELVIS: Examination of the pelvis was obtained by CT, as noted above, revealing a large amount of free fluid in the posterior cul-de-sac and extending anteriorly and cranially in the pelvis. Etiology is indeterminate, but could represent a very large physiologic ovarian cyst rupture. The possibility of other etiology such as PID would be a consideration. Also noted is a focal area of fat stranding surrounding a portion of the proximal appendix which is in the right lower quadrant extending into the pelvis. The possibility of a very localized or previous appendicitis would be a consideration, but should be correlated clinically. Report was called to Dr. Phillips at 1600 hours, 11/24/2016. [facility]
[2016-11-25] MEDS: Loperamide 2 MG Cap PO PRN (10:13)
--- NOTE | 2016-11-25 12:09 | PN ---
DATE SEEN: 11/25/2016 SUBJECTIVE: Jillian is seen today for followup of her cystitis, migraine headache associated with nausea, vomiting. She is considerably improved. She says her headache has improved considerably, and she no longer has any nausea, has not vomited now for some time. No loose stools have been noted. She had an ultrasound done yesterday showing some evidence of hydronephrosis in the kidneys; therefore, CT scan of her pelvis was done and shows a fair amount of free pelvic fluid, but no evidence of obstructive uropathy in the kidneys, bladder, or ureter. No evidence of other abnormalities were identified. She says today she is feeling much better. She is wanting more to eat, hungry and up and about. She admits to a little bit of neck discomfort with movement, but no stiffness and has had no other complaints or concerns. OBJECTIVE: GENERAL: She appears to be in no acute distress. VITAL SIGNS: At this time, afebrile. Blood pressure is 116/67, pulse is 56 and regular, respirations were 16 and unlabored. HEENT: Unremarkable. NECK: Actually had full range of motion with no evidence of stiffness. There was little bit of paraspinal muscle tenderness to palpation in the cervical region. CHEST: Clear. CARDIOVASCULAR: Revealed a normal S1 and S2 without murmur, rub, or gallop. ABDOMEN: Unremarkable. EXTREMITIES: Also negative. IMPRESSION: 1. Recent cystitis secondary to Escherichia coli with resultant lower abdominal pain. She does have some free fluid in the pelvis, and she may have had a ruptured ovarian cyst, but there is no evidence of PID or other abnormalities at least at this time. 2. Migraine headache with resultant nausea and vomiting that is improving. PLAN: We will discontinue her IV. Switch her from IV ceftriaxone for the cystitis to oral Macrobid 100 mg b.i.d. She apparently developed some significant GI upset from the sulfa medications. I increased her nortriptyline last night to 20 mg daily, and she said she slept fairly well. Has had no adverse effects. We will continue that and increase her diet and activity. We will plan on discharge today with followup with her regular provider in one week. /[id number] WM/MODL
[2016-11-25 16:38] VITALS: BP 100/51
[2016-11-25] MEDS: Citalopram 20 MG Tab PO SCH (18:32)
[2016-11-25] MEDS ORDERED: Nitrofurantoin Monohydrate/Macrocrystalline 100 MG Cap PO SCH (21:00)
--- NOTE | 2016-11-29 01:24 | DISCH ---
DISCHARGE DATE: 11/25/2016 REASON FOR ADMISSION: This 51-year-old, female with a previous history of migraine headaches and depression along with some stress incontinence. She was admitted after being seen in the emergency room twice in the last 24 hours with a severe posterior headache, fever, chills, lower abdominal discomfort. She had apparently been seen in the clinic the day before with urgency and increased urinary frequency. Urinalysis revealed pyuria and culture was ordered. She was started on Bactrim DS one b.i.d., shortly thereafter, she began noticing increasing posterior headache that she described as a severe migraine. She has had these in the past. She was given IV Zosyn, Phenergan, and ketorolac for headache. She was discharged home. She seemed to be doing better, but then became worse again, more nausea, was unable to keep anything down with severe headache. She had been evaluated previously within the last few months for the severe headache with a CT scan that was normal and MRI that was normal. She had a consultation with Neurology and they recommended initiating some nortriptyline. She said initially she thought that was actually working quite well, but now has become worse. She was seen in the emergency room, given IV fluids, Zofran and promethazine along with Dilaudid, but continued to do poorly. She was therefore admitted for more aggressive therapy. Please see the copy of the H and P for further details. HOSPITAL COURSE: When the patient was admitted, her white count was elevated at 15,200 her hemoglobin was 13.2, and she had a left shift. Her electrolytes were normal. Her creatinine was 0.8, BUN of 16. A repeat urinalysis was unremarkable, but she did become febrile. Cultures of her blood were obtained and a urine culture was reviewed and showed greater than 100,000 colonies of E. coli. We, therefore, hydrate her with intravenous fluids thinking that she may in fact have some septicemia and started her on Rocephin 1 g IV q.24 hours. She had also been placed on Cipro 500 mg daily, but we held on this as she was quite nauseated and was unable to keep much down. Culture eventually grew out E. coli, sensitive to everything and she defervesced nicely. She continued to have significant headache and nausea, but gradually with the use of IV promethazine and then eventually hydroxyzine, her nausea seemed to slowly improve. We restarted her nortriptyline, but increased it to 20 mg daily and that seemed to help her headache considerably. With re-hydration, and the above-mentioned antibiotics, her white count returned to 7900, her hemoglobin dropped, but it was considered to be delusional at 11.5, and her differential returned to normal. Her diet was advanced and she began keeping this down and we eventually switch her over to Macrobid 100 mg b.i.d. for her antibiotic, as she seemed to have significant adverse reaction to the sulfa and really did want use Cipro because she was nauseated at that time she took it, although I felt that was probably from her headache. She was comfortable with the Macrobid and actually had no difficulties with it. She has was up and about eating and drinking well and we discharged her to follow up as an outpatient. FINAL DIAGNOSES: 1. Urinary tract infection secondary to E. coli with resultant fever, chills, leukocytosis. 2. Migraine headache with resultant nausea, vomiting, and mild dehydration. 3. Previous history of depression and anxiety. DISCHARGE MEDICATIONS: 1. Macrobid 100 mg b.i.d. 2. Nortriptyline 20 mg p.o. at bedtime. 3. Omeprazole 20 mg daily. 4. Citalopram 20 mg daily. 5. Sumatriptan 100 mg tablet one at the onset of headache and may repeat in 2 hours if headache has not improved. She is to take no more than 2 in 24 hours. DISCHARGE DIET: Regular. DISCHARGE DISPOSITION: She was discharged in the care of her family. She will follow up with her regular provider in 1 week for repeat urinalysis. If there are problems or other difficulties arise, let us know. /[id number] /REUBEN
== END 2016-11-25 18:50 | disposition home or self-care (01) | DRG 54 ==
LOC: FB.ED 05:48 → FB.MS 06:16 → OBSVTOIN 12:45
PROVIDERS: ADMIT Family Medicine; ATTEND Family Medicine
DX: G43.519 Persistent migraine aura without cerebral infarction, intractable, without status migrainosus (principal); F32.9 Major depressive disorder, single episode, unspecified; K21.9 Gastro-esophageal reflux disease without esophagitis; F41.9 Anxiety disorder, unspecified; N39.0 Urinary tract infection, site not specified; B96.20 Unspecified Escherichia coli [E. coli] as the cause of diseases classified elsewhere; Z87.440 Personal history of urinary (tract) infections; N83.209 Unspecified ovarian cyst, unspecified side; R10.2 Pelvic and perineal pain; K30 Functional dyspepsia; T50.995A Adverse effect of other drugs, medicaments and biological substances, initial encounter; R19.7 Diarrhea, unspecified
CPT/HCPCS: 36415; 74178; 76770; 80048; 81001; 83735; 85025; 87040; 94760; 96361; 96365; 96367; 96372; 96375; 99284; A9270-GY; C9113; G0378; J0696; J0744; J1170; J1885; J2550; J3030; J3410; J3480; J7040; J7050; Q9967

== ENCOUNTER 2021-09-27 06:08 | Day surgery (SDC) | payer BC, OTHER ==
[2021-09-27] MEDS ORDERED: Propofol 200 MG/20 ML SDV IV ONE (06:09)
[2021-09-27] MEDS ORDERED: Sodium Chloride 0.9% 10 ML Syringe FLUSH PRN (06:15)
[2021-09-27] MEDS ORDERED: Lactated Ringers 1,000 ML IV SCH (06:15)
[2021-09-27 09:18] VITALS: BP 116/72; PULSE 60
== END 2021-09-27 08:45 | disposition home or self-care (01) ==
LOC: FB.SDS 06:08
PROVIDERS: ATTEND Surgery
DX: Z12.11 Encounter for screening for malignant neoplasm of colon (principal); D12.6 Benign neoplasm of colon, unspecified; K21.9 Gastro-esophageal reflux disease without esophagitis; Z98.890 Other specified postprocedural states; Z80.0 Family history of malignant neoplasm of digestive organs
CPT/HCPCS: 00811-QZ; 88305; J2704; J7120

== ENCOUNTER 2021-12-03 18:58 | Emergency (ER) | payer OTHER ==
[2021-12-03] MEDS: Sodium Chloride 0.9% 10 ML Syringe FLUSH PRN (19:39)
[2021-12-03] MEDS: Sodium Chloride 0.9% 1,000 ML IV SCH (19:41)
[2021-12-03] MEDS: Ondansetron 4 MG/2 ML SDV IVPUSH ONE (19:44)
[2021-12-03] MEDS: Ketorolac 30 MG/ML SDV IVPUSH ONE (19:46)
[2021-12-03] MEDS: Morphine 4 MG/ML VIAL IVPUSH STA (20:25)
[2021-12-03] MEDS: SUMAtriptan 6 MG/0.5 ML SDV SUBCUT STA (20:25)
[2021-12-03] MEDS: Prochlorperazine 10 MG in Sodium Chloride 0.9% 50 ML IV STA (20:26)
[2021-12-03 23:31] VITALS: BP 102/52; PULSE 77
== END 2021-12-03 21:30 | disposition home or self-care (01) ==
LOC: FB.ED 18:58
DX: G43.909 Migraine, unspecified, not intractable, without status migrainosus (principal); E87.5 Hyperkalemia; E86.0 Dehydration
CPT/HCPCS: 36415; 80048; 85025; 96361; 96365; 96372; 96375; 99284; J0780; J1885; J2270; J2405; J3030; J3490; J7030

== ENCOUNTER 2021-12-04 06:37 | Observation (INO) | payer OTHER ==
[2021-12-04] MEDS ORDERED: Sodium Chloride 0.9% 10 ML Syringe FLUSH PRN (07:06)
[2021-12-04] MEDS ORDERED: Prochlorperazine 10 MG in Sodium Chloride 0.9% 50 ML IV PRN (07:08)
[2021-12-04] MEDS ORDERED: Morphine 4 MG/ML VIAL IVPUSH SCH (07:15)
[2021-12-04] MEDS ORDERED: cefTRIAXone 1 GM Vial IVPUSH SCH (07:15)
[2021-12-04] MEDS ORDERED: NS + KCl 20mEq/L 1,000 ML IV SCH ×2 (07:15→16:00)
[2021-12-04] MEDS ORDERED: Sodium Chloride 0.9% 1,000 ML IV SCH ×2 (07:15→19:00)
[2021-12-04] MEDS ORDERED: Ketorolac 30 MG/ML SDV IVPUSH SCH (07:15)
[2021-12-04] MEDS ORDERED: Ondansetron 4 MG/2 ML SDV IVPUSH ONE (08:23)
[2021-12-04] MEDS ORDERED: Iopamidol 755 Mg/ML 100 ML Bottle IV ONE (08:40)
[2021-12-04 08:46] LABS: CORONAVIRUS COVID-19 NAA NEGATIVE (NEGATIVE)
[2021-12-04] MEDS ORDERED: Ketorolac 30 MG/ML SDV IVPUSH PRN (10:01)
[2021-12-04] MEDS ORDERED: Morphine 4 MG/ML VIAL IVPUSH PRN (10:07)
[2021-12-04] MEDS ORDERED: Acetaminophen 500 MG Tab PO PRN (10:07)
[2021-12-04] MEDS ORDERED: Enoxaparin 40 MG/0.4 ML Syringe SUBCUT SCH (10:15)
[2021-12-04] MEDS: Ondansetron 4 MG/2 ML SDV IVPUSH PRN ×2 (12:44→17:09)
[2021-12-04] MEDS ORDERED: Morphine 2 MG/ML SYRINGE IVPUSH PRN (18:23)
[2021-12-04] MEDS: Acetaminophen 500 MG Tab PO SCH ×2 (18:42→22:50)
[2021-12-04] MEDS ORDERED: cefTRIAXone 1 GM Vial IVPUSH ONE (21:38)
[2021-12-04] MEDS ORDERED: Sodium Chloride 0.9% 1,000 ML IV ONE (21:38)
[2021-12-04 23:15] VITALS: BP 112/61; PULSE 92
[2021-12-05] MEDS ORDERED: FLUoxetine 20 MG Cap PO SCH (09:00)
== END 2021-12-04 22:55 ==
LOC: FB.ED 06:37 → FB.MS 10:01
PROVIDERS: ADMIT Emergency Medicine; ATTEND Family Medicine
DX: N12 Tubulo-interstitial nephritis, not specified as acute or chronic (principal); G43.909 Migraine, unspecified, not intractable, without status migrainosus; H54.7 Unspecified visual loss; K21.9 Gastro-esophageal reflux disease without esophagitis; F32.A Depression, unspecified; Z20.822 Contact with and (suspected) exposure to COVID-19; Z79.899 Other long term (current) drug therapy
CPT/HCPCS: 0240U; 36415; 70450; 71045; 74177; 80053; 81001; 82150; 83605; 83690; 83735; 85025; 86140; 87040; 93005; 96365; 96366; 96367; 96375; 99285; A9270; J0696; J0780; J1650; J1885; J2270; J2405; J3480; J3490; J7030; Q9967; 99283

== ENCOUNTER 2022-06-18 19:00 | Emergency (ER) | payer OTHER ==
[2022-06-18] MEDS: Lactated Ringers 1,000 ML IV ONE ×2 (19:19→22:28)
[2022-06-18] MEDS: Ondansetron 4 MG Tab.DIS PO ONE (19:22)
[2022-06-18] MEDS: Ketorolac 30 MG/ML SDV IVPUSH ONE (19:22)
[2022-06-18] MEDS: Prochlorperazine 10 MG/2 ML SDV IVPUSH ONE (20:27)
[2022-06-18] MEDS: diphenhydrAMINE 50 MG/ML SDV IVPUSH ONE (20:27)
[2022-06-18 20:57] LABS: ESTIMATED GFR 86 mL/min (>60)
[2022-06-18] MEDS: Potassium Chloride 20 MEQ Tab.ER PO ONE (21:22)
[2022-06-18] MEDS: cefTRIAXone 1 GM in Sodium Chloride 0.9% 50 ML IV ONE (21:34)
[2022-06-18] MEDS: Acetaminophen 500 MG Tab PO ONE (21:52)
[2022-06-18] MEDS: HYDROmorphone 2 MG/ML SDV IVPUSH ONE (22:17)
[2022-06-18] MEDS: Ondansetron 4 MG/2 ML SDV IVPUSH ONE (22:29)
[2022-06-18 23:01] VITALS: BP 101/48; PULSE 81
== END 2022-06-18 23:33 | disposition home or self-care (01) ==
LOC: FB.ED 19:00
DX: N39.0 Urinary tract infection, site not specified (principal); R31.9 Hematuria, unspecified; T36.8X5A Adverse effect of other systemic antibiotics, initial encounter; M19.90 Unspecified osteoarthritis, unspecified site; Z88.2 Allergy status to sulfonamides; Z79.899 Other long term (current) drug therapy
CPT/HCPCS: 36415; 71045; 80048; 83605; 85027; 86140; 96361; 96365; 96375; 99285-25; A9270-GY; J0696; J0780; J1170; J1200; J1885; J2405; J3490; J7120; Q0162